=== PATIENT | male | born 1950 | race Caucasian/White ===

== ENCOUNTER 2016-11-17 12:52 | Emergency (ER) | payer MEDICARE ==
[2016-11-17 12:59] VITALS: BP 146/80
[2016-11-17] MEDS ORDERED: oxyCODONE/Acetamin 5/325 MG* TAB PO ONE (13:29)
--- NOTE | 2016-11-17 13:37 | ED ---
Upper Extremity Pain - HPI Summary HPI Summary: 66M presents with right upper arm pain for a week and a half. He states the initially injury occurred last Wednesday when he was lifting some concrete bags. He states there was no brusing at the time but his biceps seemed to swell and he plcaed ice on it and the swelling and pain went down. On wednesday he went to miner pick his cat and he felt a sharpa pain from his antecubital fossa of right arm to the midpoint of his upper arm. He states the are again swelled but seem to be getting better till today. Today noticed swelling, ecchmoysis and pain is going up to pectoral muscles. He was reaching up to open a window when he felt the intense pain. He is right handed. 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 - History of Current Complaint Chief Complaint: EDExtremityUpper Stated Complaint: RT ARM PAIN/INJURY Time Seen by Provider: 11/17/16 13:15 - Allergies/Home Medications Allergies/Adverse Reactions: Allergies Allergy/AdvReac Type Severity Reaction Status Date / Time No Known Allergies Allergy Verified 11/17/16 12:54 PMH/Surg Hx/FS Hx/Imm Hx Endocrine/Hematology History: Denies: Hx Diabetes Cardiovascular History: Denies: Hx Hypertension, Hx Pacemaker/ICD History: Denies: Hx Renal Disease Musculoskeletal History: Reports: Hx Scoliosis - THORACIC REGION Sensory History: Denies: Hx Hearing Aid Psychiatric History: Denies: Hx Panic Disorder Infectious Disease History: No Infectious Disease History: Denies: Traveled Outside the [place] in Last 30 Days - Family History Known Family History: Positive: Hypertension - Social History Alcohol Use: Occasionally Substance Use Type: Reports: None Smoking Status (MU): Never Smoked Tobacco Review of Systems Negative: Fever Negative: Chest Pain Negative: Shortness Of Breath Positive: Myalgia - biceps pain Positive: Bruising - biceps All Other Systems Reviewed And Are Negative: Yes Physical Exam Triage Information Reviewed: Yes Vital Signs On Initial Exam: Initial Vitals Temp Pulse Resp Pulse Ox 98.2 F 91 18 98 11/17/16 12:54 11/17/16 12:54 11/17/16 12:54 11/17/16 12:54 Vital Signs Reviewed: Yes Skin: Positive: Other - ecchmyosis noted of anterior upper arm from antecubital fossa to shoulder Head/Face: Positive: Normal Head/Face Inspection Eyes: Positive: Normal, Conjunctiva Clear Respiratory/Lung Sounds: Positive: Clear to Auscultation, Breath Sounds Present Cardiovascular: Positive: Normal, RRR Musculoskeletal: Positive: Limited @ - shoulder and elbow due to pain, Other - neg yearson Diagnostics - Vital Signs Vital Signs Temp Pulse Resp BP Pulse Ox 11/17/16 12:57 98.2 F 91 18 146/80 98 11/17/16 12:54 98.2 F 91 18 98 - Laboratory Lab Statement: Any lab studies that have been ordered have been reviewed, and results considered in the medical decision making process. - CT upper extremity CT Interpretation: Positive (See Comments) - IMPRESSION: SOFT TISSUE SWELLING AND POSSIBLE BICEPS MUSCLE OR TENDON INJURY. RECOMMEND A FOLLOW-UP OUTPATIENT MRI OF THE ARM WITHOUT CONTRAST FOR FURTHER EVALUATION. CT Interpretation Completed By: Radiologist Course/Dx - Course Course Of Treatment: 66M presents with right upper arm injury two weeks ago. initally injuried it lifting something and seemed to get better but then on Wednesday lifted cat and felt pain along biceps tendon. seemed to get better again but then patient went to open a window today and felt pain and started to notice brusing and swelling in area. Pain then became to travel to shoulder and pectorials where pain was not before. on exam ecchymosis greatest over distal end of biceps, edema over biceps tendon with slight karen deformity at mid upper arm. neg yearson. discussed the clinical appears to be partial tear of biceps but patient would like some imaging. discussed MRI best but unable to obtain at this time. discussed and decided to do CT. CT shows swelling of biceps which supports partial tear. spoke with dr junior said can use sling and see in office . told to do RICE. patient understands and agrees with plan - Diagnoses Differential Diagnosis/HQI/PQRI: Positive: Strain, Sprain, Other - tear, tendonitis Provider Diagnoses: Biceps muscle tear - Physician Notifications Discussed Care Of Patient With: dr menchaca Time Discussed With Above Provider: 14:40 - will see on . Discharge - Discharge Plan Condition: Good Disposition: HOME Prescriptions: oxyCODONE/Acetamin 5/325 MG* [Percocet 5/325 TAB*] 1 tab PO Q6H PRN #12 tab MDD 4 PRN Reason: Pain Patient Education Materials: Tendon Rupture (ED) Referrals: No Primary Care Phys,NOPCP [Primary Care Provider] - Camille Junior MD [Medical Doctor] - Additional Instructions: Call office for appointment time on with dr Junior Move shoulder as tolerated Place ice on area and keep elevated Take ibuprofen for pain every 6 hours and use narcotic for break through pain Return to ED if develop any new or worsening symptoms
--- NOTE | 2016-11-17 14:28 | RAD ---
INDICATION: Trauma right arm pain. COMPARISON: There are no prior studies available for comparison. TECHNIQUE: Contiguous axial sections were obtained of the right arm beginning above the top of the shoulder and continuing through the distal humerus. Images were reconstructed in the sagittal and coronal planes. FINDINGS: The bones are in normal alignment. No fracture is seen. 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 There is soft tissue swelling present in the mid and distal portion of the arm best visualized in the subcutaneous tissues. There is also mild increased density in the midportion of the biceps muscle suggesting the possibility of muscle or tendon injury although this is not definitive by this study. IMPRESSION: SOFT TISSUE SWELLING AND POSSIBLE BICEPS MUSCLE OR TENDON INJURY. RECOMMEND A FOLLOW-UP OUTPATIENT MRI OF THE ARM WITHOUT CONTRAST FOR FURTHER EVALUATION.
== END 2016-11-17 15:27 | disposition home or self-care (01) ==
LOC: ED 12:52
DX: S46.211A Strain of muscle, fascia and tendon of other parts of biceps, right arm, initial encounter (principal); X50.9XXA Other and unspecified overexertion or strenuous movements or postures, initial encounter; Y99.0 Civilian activity done for income or pay
CPT/HCPCS: 99282; A9270-GY

== ENCOUNTER 2018-05-19 05:48 | Day surgery (SDC) | payer MEDICARE ==
[~2018-05-19 05:48] MED LIST: Buffered Lidocaine 0.9% SYRIN* 5 ML/SYR SYRINGE INTRADERM ONE
[2018-05-19] MEDS ORDERED: Famotidine IV* 10 MG/ML 2 ML (20 mg) IV ONE (06:00)
[2018-05-19] MEDS ORDERED: Famotidine IV* 10 MG/ML 2 ML (20 mg) ONE (06:15)
[2018-05-19] MEDS ORDERED: ceFAZolin 2 GM PREMIX in ORs 2 GM/50 ML BAG IVPB ONE (06:15)
[2018-05-19] MEDS ORDERED: Ketorolac INJ* 30 MG/ML 1 ML VIAL ONE ×2 (06:15→08:22)
[2018-05-19] MEDS ORDERED: Lidocain 1% EPI 1:100,000 * 30 ML MDV ONE (06:52)
[2018-05-19] MEDS ORDERED: Bupivacaine 0.25% W/EPI* 10 ML SDV ONE ×2 (06:52→07:16)
[2018-05-19] MEDS ORDERED: Bupivacaine 0.5% SDV PF* 30ML VIAL ONE (06:55)
[2018-05-19] MEDS ORDERED: Lidocaine 1% INJ* 10 MG/ML 30 ML SDV ONE (07:17)
[2018-05-19] MEDS ORDERED: Midazolam* 1 MG/ML 5 ML VIAL (5 MG) ONE (07:24)
[2018-05-19] MEDS ORDERED: fentaNYL* 50 MCG/ML 2 ML VIAL (100 MCG VIAL) ONE (07:34)
[2018-05-19] MEDS ORDERED: Lidocaine 2% PF * 5 ML VIAL ONE (08:22)
[2018-05-19] MEDS ORDERED: Ondansetron INJ* 2 MG/ML VIAL ONE (08:22)
[2018-05-19] MEDS ORDERED: Propofol* 10 MG/ML 20 ML BTL IV PUSH ONE (08:22)
--- NOTE | 2018-05-19 08:37 | OP ---
Operative Report - Blank - Operative Report Date of Operation: 05/19/18 Note: Brief Operative Note Preop Dx: Right Inguinal hernia Postop Dx: same, indirect Procedure: open repair RIH w/ mesh Anesthesia: local MAC Surgeon: Raoul Fuels Engineer: HUSSEIN Brower Fluids: 1000 ml RL EBL: < 10 ml Specimen: none Drains: none Findings: dictated
[2018-05-19] MEDS ORDERED: Naloxone* 0.4 MG/ML 1 ML VIAL IV PRN (08:42)
[2018-05-19] MEDS ORDERED: oxyCODONE TAB* 5 MG TAB PO PRN (08:42)
[2018-05-19] MEDS ORDERED: HYDROmorphone INJ1* 1 MG/ML SYRINGE IV PRN (08:42)
[2018-05-19] MEDS ORDERED: Acetaminophen TAB* 325 MG PO PRN (08:42)
[2018-05-19 09:43] VITALS: BP 126/79
[2018-05-19] MEDS ORDERED: Morphine VIAL* 10 MG/ML 1 ML VIAL ONE (09:56)
--- NOTE | 2018-05-20 04:48 | OP ---
CC: Dr. Diallo * DATE OF OPERATION: 05/19/18 - SDS DATE OF : 48 SURGEON: Abilio Silveira MD [facility] [facility] MANAGER: HUSSEIN Williamson ANESTHESIOLOGIST: Dr. Baires. ANESTHESIA: LMAC anesthesia. PRE-OP DIAGNOSIS: Right inguinal hernia. POST-OP DIAGNOSIS: Right inguinal hernia. OPERATIVE PROCEDURE: Open right inguinal hernia repair with mesh. DESCRIPTION OF PROCEDURE: The patient was supine on the operating room table. After adequate intravenous sedation, compression stockings, Marco Hugger warmer, and intravenous antibiotics, the right groin was clipped and prepped with antiseptic, draped in a sterile fashion. Local infiltrative anesthesia was administered and an approximately 2.5-inch incision was created and carried down to the external oblique, which was opened in the direction of its fibers. The cord structures were encircled with a Homer drain, tented upward. There was no direct space hernia. The indirect space had moderately large sac that was dissected free and reduced along with some lipoma of the cord. The cone mesh plug was placed into the internal ring and sutured there with 2-0 Vicryl. A second piece of mesh was placed over the inguinal floor, sutured at the tubercle. Tails were split, brought around the cord structures, tacked down laterally. External oblique was closed over top with 2-0 Vicryl, Abdoulaye's with 3-0 Vicryl, skin with 4-0 Prolene followed by a sterile dressing. He tolerated the procedure well, was awake and brought to Recovery in good condition. No complications, no drains. No pathologic specimens. Sponge and instrument counts correct. Estimated blood loss 10 mL. [id number]/[facility] #: [id number] MTDD
== END 2018-05-19 10:14 | disposition home or self-care (01) ==
LOC: OR 05:48
PROVIDERS: ATTEND Surgery
DX: K40.90 Unilateral inguinal hernia, without obstruction or gangrene, not specified as recurrent (principal); F41.8 Other specified anxiety disorders; M19.90 Unspecified osteoarthritis, unspecified site
CPT/HCPCS: C1781; J0690; J1885; J2250; J2270; J2405; J2704; J3010

== ENCOUNTER 2018-10-26 08:29 | Day surgery (SDC) | payer MEDICARE ==
[~2018-10-26 08:29] MED LIST changes: -Buffered Lidocaine 0.9% SYRIN* 5 ML/SYR SYRINGE INTRADERM ONE; +Buffered Lidocaine 1% SYRIN* 1 ML/SYRINGE INTRADERM ONE
[2018-10-26 08:48] VITALS: BP 133/78
[2018-10-26] MEDS ORDERED: fentaNYL* 50 MCG/ML 2 ML VIAL (100 MCG VIAL) ONE (09:51)
[2018-10-26] MEDS ORDERED: Midazolam* 1 MG/ML 2 ML VIAL (2 MG) ONE (09:51)
[2018-10-26] MEDS ORDERED: Lidocaine 1%* 5 ML VIAL ONE (11:07)
[2018-10-26] MEDS ORDERED: Ketorolac 0.5% OPHTH (NF) 0.5 % 5 ML BTL ONE (11:07)
[2018-10-26] MEDS ORDERED: Cyclopentolate 1% OPTH.SOL* 2 ML BTL ONE (11:07)
[2018-10-26] MEDS ORDERED: acetaZOLAMIDE TAB* 250 MG ONE (11:07)
[2018-10-26] MEDS ORDERED: Povidone Iodine 5% OPTH* 30 ML BTL ONE (11:07)
[2018-10-26] MEDS ORDERED: Phenylephrine OPHTH SOL 2.5%* 2 ML ONE (11:07)
[2018-10-26] MEDS ORDERED: Neomycin/Polymy/Dex OPTH.SUSP* MAXITROL 0.1% 5 ML ONE (11:07)
[2018-10-26] MEDS ORDERED: Lidocaine 2% EPI 1:200000 MPF*10-20 ML VIAL ONE (11:07)
[2018-10-26] MEDS ORDERED: Proparacaine 0.5% OPHTH.SOL* 15 ML BTL ONE (11:07)
--- NOTE | 2018-10-26 12:37 | OP ---
OPERATIVE NOTE: DATE OF OPERATION: 10/26/18 DATE OF : 48 SURGEON: Jefry Monteiro M.D. PREOPERATIVE DIAGNOSIS: Cataract, right eye. POSTOPERATIVE DIAGNOSIS: Cataract, right eye. OPERATIVE PROCEDURE: Extracapsular cataract extraction with intraocular lens implant, right eye. PROCEDURE: The patient was brought to the operating room after being given 1/2% Alcaine with epineph rine drops in the preoperative area. The eye was prepped and draped in the usual sterile fashion. S terile drape and eyelid speculum were placed. Again, topical 1/2% Alcaine with epinephrine was given . A paracentesis incision was made at the 9 o'clock position with the No. 75 blade. Clear cornea in cision 2.2 x 2.2-mm was created at the 12 o'clock position starting at the anterior limbus using the 2.2-mm keratome. The anterior chamber was irrigated with 0.4 mL of 1% non-preservative intracameral lidocaine and filled with DisCoVisc. A capsulorrhexis was completed using the cystotome and the Utra ta forceps. Hydrodissection was performed with balanced salt solution. The lens nucleus was removed with the Phacoemulsification handpiece without incident. Cortex was removed with the irrigation-aspi ration handpiece. The capsular bag was re-inflated using DisCoVisc and an SN60WF 26.5 implant was in serted with the shooter. The irrigation-aspiration handpiece was used to remove all residual DisCoVi sc. The eye was refilled with balanced salt solution and the wound checked and found to be watertigh t. Topical Maxitrol drops were given. [id number]/[facility] #: [id number]
[2018-10-27] MEDS ORDERED: Acetaminophen TAB* 325 MG PO PRN (05:00)
== END 2018-10-26 11:04 | disposition home or self-care (01) ==
LOC: OREAST 08:29
PROVIDERS: ATTEND Specialist
DX: H25.811 Combined forms of age-related cataract, right eye (principal); H35.372 Puckering of macula, left eye; K21.9 Gastro-esophageal reflux disease without esophagitis; F41.9 Anxiety disorder, unspecified; M19.90 Unspecified osteoarthritis, unspecified site
CPT/HCPCS: A9270-GY; J2250; J3010; V2632